=== PATIENT | female | born 1975 | race Caucasian/White ===

== ENCOUNTER → 2016-12-06 16:16 | Outpatient (CLI) | payer OTHER ==
[2014-10-29 11:02] VITALS: BMI 26.7
[~2016-12-06 16:16] MED LIST: ACETAMINOPHEN500 M1 PO; ADVIL200 MG PO; ASPIRIN 81 MG E81 MG PO; ASPIRIN325 MG PO; BENICAR40 MG PO; DEXILANT60 MG PO; ISOSORBIDE DINI30 MG PO; LOPRESSOR25 MG PO; MOBIC7.5 MG PO; NITROQUICK0.4 MG SL; NORVASC10 MG PO; PLAVIX75 MG PO; TENORMIN25 MG PO; ULTRAM50 MG PO
== END | disposition home or self-care (01) ==
LOC: D.MAMMO 11-10 14:30
DX: Z12.31 Encounter for screening mammogram for malignant neoplasm of breast (principal)

== ENCOUNTER → 2018-09-12 18:47 | Outpatient (CLI) | payer BC ==
[2014-10-29 11:02] VITALS: BMI 26.7
== END | disposition home or self-care (01) ==
LOC: D.MAMMO 16:00
DX: Z12.31 Encounter for screening mammogram for malignant neoplasm of breast (principal)

== ENCOUNTER → 2020-04-10 09:08 | Outpatient (CLI) | payer BC ==
[2014-10-29 11:02] VITALS: BMI 26.7
== END | disposition home or self-care (01) ==
LOC: D.RAD 09:00
PROVIDERS: ATTEND Orthopaedic Surgery
DX: S73.191A Other sprain of right hip, initial encounter (principal)

== ENCOUNTER → 2020-12-29 14:38 | Outpatient (CLI) | payer BC ==
[2014-10-29 11:02] VITALS: BMI 26.7
== END | disposition home or self-care (01) ==
LOC: D.MRI 14:38
PROVIDERS: ATTEND Clinical Nurse Specialist Family Health
DX: M67.431 Ganglion, right wrist (principal)

== ENCOUNTER → 2021-01-08 10:45 | Outpatient (CLI) | payer BC ==
[2014-10-29 11:02] VITALS: BMI 26.7
== END | disposition home or self-care (01) ==
LOC: D.MRI 10:45
PROVIDERS: ATTEND Clinical Nurse Specialist Family Health
DX: M79.645 Pain in left finger(s) (principal)